=== PATIENT | female | born 1945 | race Caucasian/White ===

== ENCOUNTER 2018-12-28 13:44 | Emergency (ER) | payer MEDICARE, OTHER ==
[~2018-12-28] VITALS: Ht 152.4 cm; Wt 63.5 kg
[~2018-12-28 13:44] MED LIST: ASPI-306; ATEN50TA PO; GLIP-116; HYDR-1421; LISI40TA; METF100097 PO; SIMV-8 PO; [UNRECOGNIZED DRUG - CODE]; [UNRECOGNIZED DRUG - OTHER]
[2018-12-28] MEDS ORDERED: NITROGLYCERIN 0.4 MG SL TAB SL ONE (15:00)
[2018-12-28] MEDS ORDERED: ASPirin 81 mg TAB PO ONE (15:00)
[2018-12-28 15:51] LABS: Basophils # (auto) 0.1 uL; Basophils % (auto) 0.4 % (0.0-2.0); Eosinophils # (auto) 0.1 uL; Eosinophils % (auto) 0.7 % (0.0-7.0); Hematocrit 33.8 % (36.0-46.0); Hemoglobin 11.3 g/dL (12.2-16.2); Lymphocytes # (auto) 1.1 uL; Lymphocytes % (auto) 7.7 % (10.0-50.0); Mean Corpuscular Hemoglobin 30.5 pg (28.0-32.0); Mean Corpuscular Hgb Conc. 33.3 g/dL (32.0-36.0); Mean Corpuscular Volume 91.4 fL (80.0-100.0); Monocytes # (auto) 1.1 uL; Monocytes % (auto) 7.3 % (0.0-12.0); Neutrophils # (auto) 12.1 uL; Neutrophils % (auto) 83.9 % (37.0-80.0); Platelet Count (auto) 294 10^3/uL (140-450); Red Cell Distribution Width 14.7 % (11.8-14.3); White Blood Cell 14.5 10^3/uL (4.4-10.8)
[2018-12-28 16:02] LABS: Albumin 3.3 g/dL (3.4-5.0); BUN/Creatinine Ratio 37.8; Calcium 8.1 mg/dL (8.5-10.1); Potassium 3.9 mmol/L (3.5-5.1)
[2018-12-28 16:18] LABS: Bilirubin, Total 0.8 mg/dL (0.2-1.0); Total Protein 6.8 g/dL (6.4-8.2)
[2018-12-28] MEDS ORDERED: cefTRIAXone 1GM/50ML D5W 50 ML IV ONE (16:45)
[2018-12-28] MEDS ORDERED: ENOXAPARIN SOD 60 MG/0.6 ML SYRINGE SC ONE (16:45)
[2018-12-28] MEDS ORDERED: HYDROcodone-ACET 5/325MG TAB PO PRN (17:30)
[2018-12-28] MEDS ORDERED: ACETAMINOPHEN 500 MG TAB PO PRN (17:30)
[2018-12-28] MEDS ORDERED: MORPHINE SULF INJ 2 MG/ML SYRINGE 1ML IV PRN ×2 (17:30)
[2018-12-28] MEDS ORDERED: ONDANSETRON HCL 4 MG/2 ML VIAL IV PRN (17:30)
[2018-12-28] MEDS ORDERED: NITROGLYCERIN 0.4 MG SL TAB SL PRN (17:30)
[2018-12-28] MEDS ORDERED: hydrALAZINE HCL 20 MG/ML VL IV PRN (17:30)
[2018-12-28] MEDS ORDERED: NITROGLYCERIN 0.4MG/HR TOPICAL PATCH TD SCH (17:30)
[2018-12-28] MEDS ORDERED: TICA90TA PO (17:35)
[2018-12-28] MEDS ORDERED: CHOL20007 PO (17:35)
[2018-12-28] MEDS ORDERED: TRAZ-220 PO (17:35)
[2018-12-28] MEDS ORDERED: NITR1SPR TL (17:35)
[2018-12-28] MEDS ORDERED: DEXTROSE (50%) 50ML SYRG IV PRN (17:45)
[2018-12-28] MEDS ORDERED: LEVOFLOXACIN 750MG 150 ML IV SCH (18:00)
[2018-12-28 21:38] LABS: Urine Bacteria FEW /hpf (None Seen); Urine Blood Negative /uL (Negative); Urine Specific Gravity 1.017 (1.001-1.035); Urine WBC 1 /hpf (0 - 5)
[2018-12-28] MEDS ORDERED: InsuLIN REG 1unit/0.01ml Soln (100units/ml) SC SCH (22:00)
[2018-12-28] MEDS ORDERED: ACCU-CHEK COMFORT CURVE STRIP VI SCH (22:00)
[2018-12-28] MEDS ORDERED: ATORVASTATIN 20 MG TAB PO SCH (22:00)
[2018-12-28] MEDS ORDERED: traZODone HCL 50 MG TAB PO SCH (22:00)
[2018-12-28] MEDS ORDERED: TICAGRELOR 90 MG TAB PO SCH (22:00)
[2018-12-29 00:15] VITALS: BP 107/59
[2018-12-29] MEDS ORDERED: PANTOPRAZOLE 40 MG/10 ML VIAL IV SCH (10:00)
[2018-12-29] MEDS ORDERED: LISINOPRIL 10 MG TAB PO SCH (10:00)
[2018-12-29] MEDS ORDERED: ASPirin-EC 81 mg tab PO SCH (10:00)
[2018-12-29] MEDS ORDERED: ATENOLOL 25 MG TAB PO ONE (10:00)
== END 2018-12-29 00:27 | disposition home or self-care (01) ==
LOC: EDBD 13:44 → EDUNIT# 13:44 → ER 13:53 → TELE 17:33 → UNDOADMIN 17:33 → ER 12-29 00:27
DX: I24.9 Acute ischemic heart disease, unspecified (principal); I25.10 Atherosclerotic heart disease of native coronary artery without angina pectoris; E11.9 Type 2 diabetes mellitus without complications; E78.5 Hyperlipidemia, unspecified; I10 Essential (primary) hypertension; I25.2 Old myocardial infarction; Z79.82 Long term (current) use of aspirin; Z79.84 Long term (current) use of oral hypoglycemic drugs; Z79.899 Other long term (current) drug therapy
CPT/HCPCS: 36415; 71045; 80053; 81001; 82962; 83880; 84484; 85025; 86141; 87040; 93005; 96365; 96366; 96367; 96372; 99285; J0696; J1650; J1815; J1956; 96375

== ENCOUNTER 2019-09-15 11:51 | Emergency (ER) | payer MEDICARE, OTHER ==
[~2019-09-15] VITALS: Ht 152.4 cm; Wt 63.5 kg
[~2019-09-15 11:51] MED LIST changes: +CHOL20007 PO; -GLIP-116; -HYDR-1421; +NITR1SPR TL; +TICA90TA PO; +TRAZ-220 PO; -[UNRECOGNIZED DRUG - CODE]; -[UNRECOGNIZED DRUG - OTHER]
[2019-09-15 13:10] LABS: Basophils # (auto) 0.1 uL; Basophils % (auto) 0.8 % (0.0-2.0); Eosinophils # (auto) 0.2 uL; Eosinophils % (auto) 3.3 % (0.0-7.0); Hematocrit 39.4 % (36.0-46.0); Hemoglobin 13.2 g/dL (12.2-16.2); Lymphocytes # (auto) 1.1 uL; Mean Corpuscular Hemoglobin 30.4 pg (28.0-32.0); Mean Corpuscular Hgb Conc. 33.6 g/dL (32.0-36.0); Mean Corpuscular Volume 90.6 fL (80.0-100.0); Monocytes # (auto) 0.7 uL; Neutrophils # (auto) 5.3 uL; Neutrophils % (auto) 71.9 % (37.0-80.0); Nucleated Red Blood Cells % 0.1 %; Platelet Count (auto) 239 10^3/uL (140-450); Red Blood Cells 4.35 10^6/uL (4.0-5.20); Red Cell Distribution Width 15.5 % (11.8-14.3); White Blood Cell 7.3 10^3/uL (4.4-10.8)
[2019-09-15 13:24] LABS: Urine Bacteria NONE SEEN /hpf (None Seen); Urine Blood Negative /uL (Negative); Urine WBC 2 /hpf (0 - 5)
[2019-09-15 13:27] LABS: INR 1.02 (0.9-1.15); Partial Thromboplastin Time 29.9 sec (23.64-32.05)
[2019-09-15 13:30] LABS: Albumin 3.5 g/dL (3.4-5.0); Calcium 8.5 mg/dL (8.5-10.1); Potassium 4.3 mmol/L (3.5-5.1)
[2019-09-15 13:32] LABS: BUN/Creatinine Ratio 26.7
[2019-09-15 13:44] LABS: Bilirubin, Total 0.6 mg/dL (0.2-1.0); Total Protein 6.8 g/dL (6.4-8.2)
[2019-09-15] MEDS ORDERED: ASPirin 81 mg TAB PO ONE (17:45)
[2019-09-15 19:22] LABS: INR 1.03 (0.9-1.15); Partial Thromboplastin Time 29.7 sec (23.64-32.05)
[2019-09-15] MEDS ORDERED: ANGIOMAX 250 MG VIAL IV ONE (20:27)
[2019-09-15] MEDS ORDERED: ATROPINE SULF 1 MG/10ml SYR ONE (20:27)
[2019-09-15] MEDS ORDERED: SODIUM CHL 0.9% 0 ML ONE (20:28)
[2019-09-15] MEDS ORDERED: PHENYLEPHRINE HCL 10 MG/ML VL ONE (20:28)
[2019-09-15] MEDS ORDERED: DOPamine 1600MCG/ML D5W 0 ML IV ONE (20:28)
[2019-09-15] MEDS ORDERED: HEPARIN SODIUM (PORCINE) 5000 UNITS/ML 1ML VIAL ONE (20:28)
[2019-09-15] MEDS ORDERED: fentaNYL CITRATE 100 MCG/2 ML VL ONE (20:29)
[2019-09-15] MEDS ORDERED: MIDAZOLAM HCL 1MG/1ML-2 ML VIAL ONE (20:29)
[2019-09-16 09:40] VITALS: BP 132/85
== END 2019-09-16 10:06 | disposition short-term general hospital (02) ==
LOC: ER 11:51
DX: I21.4 Non-ST elevation (NSTEMI) myocardial infarction (principal); E11.9 Type 2 diabetes mellitus without complications; E78.5 Hyperlipidemia, unspecified; I10 Essential (primary) hypertension; I25.2 Old myocardial infarction; Z98.61 Coronary angioplasty status; Z79.82 Long term (current) use of aspirin; Z79.899 Other long term (current) drug therapy
CPT/HCPCS: 36415; 71046; 80053; 81001; 83880; 84443; 84484; 85025; 85610; 85730; 93005; J2250

== ENCOUNTER 2021-04-18 11:25 | Emergency (ER) | payer MEDICARE, OTHER ==
[~2021-04-18] VITALS: Ht 172.7 cm; Wt 59.0 kg
[~2021-04-18 11:25] MED LIST changes: -LISI40TA; +LISI40TA11
[2021-04-18 12:14] LABS: Basophils # (auto) 0 10 ^3/uL (0-0.2); Basophils % (auto) 0.1 % (0.0-2.0); Eosinophils # (auto) 0.2 10 ^3/uL (0-0.8); Eosinophils % (auto) 2.8 % (0.0-7.0); Hematocrit 35.5 % (36.0-46.0); Hemoglobin 12.3 g/dL (12.2-16.2); Lymphocytes # (auto) 1.4 10 ^3/uL (0.4-5.4); Lymphocytes % (auto) 17.2 % (10.0-50.0); Mean Corpuscular Hemoglobin 31.8 pg (28.0-32.0); Mean Corpuscular Hgb Conc. 34.6 g/dL (32.0-36.0); Mean Corpuscular Volume 91.9 fL (80.0-100.0); Monocytes # (auto) 0.6 10 ^3/uL (0-1.3); Monocytes % (auto) 7.4 % (0.0-12.0); Neutrophils # (auto) 5.7 10 ^3/uL (1.6-8.6); Neutrophils % (auto) 72.5 % (37.0-80.0); Red Blood Cells 3.86 10^6/uL (4.0-5.20); Red Cell Distribution Width 15.7 % (11.8-14.3); White Blood Cell 7.9 10^3/uL (4.4-10.8)
[2021-04-18 12:35] LABS: Albumin 3.7 g/dL (3.4-5.0); Calcium 8.7 mg/dL (8.5-10.1); Magnesium 2.4 mg/dL (1.6-2.6); Potassium 4.3 mmol/L (3.5-5.1)
[2021-04-18 12:41] LABS: Bilirubin, Total 0.6 mg/dL (0.2-1.0); Total Protein 7.4 g/dL (6.4-8.2)
[2021-04-18] MEDS ORDERED: SODIUM CHLORIDE 0.9% 1,000 ML IVB ONE (13:15)
[2021-04-18 16:14] VITALS: BP 151/65
== END 2021-04-18 17:06 | disposition still patient (30) ==
LOC: ER 11:25 → EDBD 11:25 → ER 17:06
DX: R06.02 Shortness of breath (principal); R10.9 Unspecified abdominal pain; I10 Essential (primary) hypertension; I25.2 Old myocardial infarction; E11.9 Type 2 diabetes mellitus without complications; E78.5 Hyperlipidemia, unspecified; I25.10 Atherosclerotic heart disease of native coronary artery without angina pectoris; Z87.891 Personal history of nicotine dependence; Z79.82 Long term (current) use of aspirin; Z79.84 Long term (current) use of oral hypoglycemic drugs; Z79.899 Other long term (current) drug therapy; Z20.822 Contact with and (suspected) exposure to COVID-19
CPT/HCPCS: 36415; 70450; 71045; 80053; 83735; 84484; 85025; 87426; 93005

== ENCOUNTER 2022-01-29 06:55 | Emergency (ER) | payer MEDICARE, OTHER ==
[~2022-01-29] VITALS: Ht 160 cm; Wt 63.5 kg
[2022-01-29 08:29] LABS: Basophils # (auto) 0.1 10 ^3/uL (0-0.2); Basophils % (auto) 0.7 % (0.0-2.0); Eosinophils # (auto) 0.1 10 ^3/uL (0-0.8); Eosinophils % (auto) 1.1 % (0.0-7.0); Hematocrit 40.4 % (36.0-46.0); Hemoglobin 13.5 g/dL (12.2-16.2); Lymphocytes # (auto) 0.8 10 ^3/uL (0.4-5.4); Lymphocytes % (auto) 8.7 % (10.0-50.0); Mean Corpuscular Hemoglobin 30.9 pg (28.0-32.0); Mean Corpuscular Hgb Conc. 33.5 g/dL (32.0-36.0); Mean Corpuscular Volume 92.1 fL (80.0-100.0); Monocytes # (auto) 0.5 10 ^3/uL (0-1.3); Monocytes % (auto) 5.4 % (0.0-12.0); Neutrophils # (auto) 7.5 10 ^3/uL (1.6-8.6); Neutrophils % (auto) 84.1 % (37.0-80.0); Red Blood Cells 4.39 10^6/uL (4.0-5.20); Red Cell Distribution Width 14.8 % (11.8-14.3); White Blood Cell 8.9 10^3/uL (4.4-10.8)
[2022-01-29 08:47] LABS: Calcium 9.3 mg/dL (8.5-10.1); Potassium 4.5 mmol/L (3.5-5.1)
[2022-01-29 08:51] LABS: Bilirubin, Total 0.8 mg/dL (0.2-1.0); Total Protein 7.7 g/dL (6.4-8.2)
[2022-01-29 08:58] LABS: INR 1.04 (0.9-1.15); Partial Thromboplastin Time 27.9 sec (23.6-33.0)
[2022-01-29 09:30] LABS: Urine Bacteria NONE SEEN /hpf (None Seen); Urine Blood Negative /uL (Negative); Urine Specific Gravity 1.029 (1.001-1.035); Urine WBC <1 /hpf (0 - 5)
[2022-01-29] MEDS ORDERED: HYDROcodone-ACET 5/325MG TAB PO ONE (09:30)
[2022-01-29] MEDS ORDERED: HYDROmorphone HCL 2 MG/ML VL/or syr IV ONE (12:45)
[2022-01-29] MEDS ORDERED: MORPHINE SULFATE 4 MG/ML SYR/VIAL IV ONE (16:15)
[2022-01-29 17:10] VITALS: BP 145/70
== END 2022-01-29 17:44 | disposition home or self-care (01) ==
LOC: ER 06:55 → EDBD 06:55 → ER 17:20
DX: S52.501A Unspecified fracture of the lower end of right radius, initial encounter for closed fracture (principal); M25.551 Pain in right hip; R79.89 Other specified abnormal findings of blood chemistry; I10 Essential (primary) hypertension; I25.10 Atherosclerotic heart disease of native coronary artery without angina pectoris; I25.2 Old myocardial infarction; E11.9 Type 2 diabetes mellitus without complications; E78.5 Hyperlipidemia, unspecified; Z87.891 Personal history of nicotine dependence; Z20.822 Contact with and (suspected) exposure to COVID-19; Z79.82 Long term (current) use of aspirin; Z79.899 Other long term (current) drug therapy; W18.39XA Other fall on same level, initial encounter; Y93.89 Activity, other specified; Y92.89 Other specified places as the place of occurrence of the external cause; Y99.8 Other external cause status
CPT/HCPCS: 36415; 72192; 73100; 80053; 81001; 82962; 84484; 85025; 85610; 85730; 87426; 93005; 96374; 99285; J1170; J7030

== ENCOUNTER 2022-01-30 07:06 | Inpatient (IN) | payer MEDICARE, OTHER ==
[~2022-01-30] VITALS: Ht 172.7 cm; Wt 57.0 kg
[2022-01-30] VITALS (11 sets, daily range): BP systolic 112–141; BP diastolic 64–86
[2022-01-30] MEDS ORDERED: ONDANSETRON HCL 4 MG/2 ML VIAL IV ONE (07:45)
[2022-01-30] MEDS ORDERED: SODIUM CHLORIDE 0.9% 1,000 ML IV ONE (07:45)
[2022-01-30 08:19] LABS: Basophils # (auto) 0.1 10 ^3/uL (0-0.2); Basophils % (auto) 0.4 % (0.0-2.0); Eosinophils # (auto) 0 10 ^3/uL (0-0.8); Hematocrit 38.3 % (36.0-46.0); Hemoglobin 12.9 g/dL (12.2-16.2); Lymphocytes # (auto) 0.6 10 ^3/uL (0.4-5.4); Lymphocytes % (auto) 3.7 % (10.0-50.0); Mean Corpuscular Hemoglobin 30.7 pg (28.0-32.0); Mean Corpuscular Hgb Conc. 33.8 g/dL (32.0-36.0); Mean Corpuscular Volume 90.9 fL (80.0-100.0); Monocytes # (auto) 1.2 10 ^3/uL (0-1.3); Monocytes % (auto) 8.1 % (0.0-12.0); Neutrophils # (auto) 13.6 10 ^3/uL (1.6-8.6); Neutrophils % (auto) 87.8 % (37.0-80.0); Red Blood Cells 4.21 10^6/uL (4.0-5.20); Red Cell Distribution Width 14.7 % (11.8-14.3); White Blood Cell 15.4 10^3/uL (4.4-10.8)
[2022-01-30] MEDS: MORPHINE SULFATE 4 MG/ML SYR/VIAL IV PRN ×2 (08:29→20:25)
[2022-01-30 08:39] LABS: Calcium 9.2 mg/dL (8.5-10.1); Magnesium 2.7 mg/dL (1.6-2.6); Potassium 4.1 mmol/L (3.5-5.1)
[2022-01-30 08:42] LABS: Bilirubin, Total 1.5 mg/dL (0.2-1.0); Total Protein 7.6 g/dL (6.4-8.2)
[2022-01-30 09:22] LABS: INR 1.03 (0.9-1.15); Partial Thromboplastin Time 28.1 sec (23.6-33.0)
[2022-01-30] MEDS ORDERED: NITROGLYCERIN 0.4 MG SL TAB SL ONE (10:00)
[2022-01-30] MEDS ORDERED: IOHEXOL 350 MG/ML 100ML IJ ONE (11:18)
[2022-01-30] MEDS ORDERED: MORPHINE SULFATE INJ 2 MG/ml SYRG IV PRN ×2 (11:45→14:45)
[2022-01-30] MEDS ORDERED: NITROGLYCERIN 0.4 MG SL TAB SL PRN ×2 (11:45→14:45)
[2022-01-30] MEDS ORDERED: ASPirin 81 mg TAB PO ONE (12:00)
[2022-01-30] MEDS ORDERED: LOSARTAN POTASSIUM 25 MG TAB PO ONE (12:00)
[2022-01-30] MEDS ORDERED: DEXTROSE (50%) 50ML SYRG IV PRN (12:00)
[2022-01-30] MEDS ORDERED: METOPROLOL SUCCINATE XL 50 MG TAB PO ONE (12:00)
[2022-01-30] MEDS: SODIUM CHLORIDE 0.9% 1,000 ML IV SCH (12:17)
[2022-01-30] MEDS ORDERED: OPTISON 3ml Vial for INJ IV ONE ×2 (13:47→14:15)
[2022-01-30 14:01] LABS: Cholesterol 116 mg/dL (< 200)
[2022-01-30 14:04] LABS: HDL Cholesterol 44 mg/dL (40-59); LDL Cholesterol 57 mg/dL (< 100); Triglycerides 160 mg/dL (< 150)
[2022-01-30 14:06] LABS: Magnesium 2.4 mg/dL (1.6-2.6); Phosphorus 4.1 mg/dL (2.5-4.90)
[2022-01-30] MEDS ORDERED: ANGIOMAX 250 MG VIAL IV ONE (14:28)
[2022-01-30] MEDS ORDERED: fentaNYL CITRATE 100 MCG/2 ML VL ONE (14:28)
[2022-01-30] MEDS ORDERED: MIDAZOLAM HCL 2MG/2ML 2ml VIAL (1mg/ml) ONE (14:28)
[2022-01-30] MEDS ORDERED: LIDOCAINE 2%HCL (LOCAL ANESTH.) INJ 10ml MDV ONE (14:29)
[2022-01-30] MEDS ORDERED: IODIXANOL 320MG/ML 100ML BTL IV ONE ×3 (14:29→15:51)
[2022-01-30] MEDS ORDERED: SODIUM CHL 0.9% 50 ML ONE (14:29)
[2022-01-30] MEDS ORDERED: diphenhdrAMINE HCL 50 MG/1 ML VL ONE (14:56)
[2022-01-30] MEDS: ACCU-CHEK COMFORT CURVE STRIP VI SCH ×2 (17:43→22:49)
[2022-01-30] MEDS: InsuLIN REG 1unit/0.01ml Soln (100units/ml) SC SCH ×2 (17:44→22:55)
[2022-01-30] MEDS: SODIUM CHLOR 0.9% PF (SALINE LOCK) 10ML VIAL/SYR IV SCH (22:48)
[2022-01-30] MEDS: SACUBITRIL-VALSARTAN 24mg/26mg TAB PO SCH (22:48)
[2022-01-30] MEDS: TICAGRELOR 90 MG TAB PO SCH (22:48)
[2022-01-30] MEDS: ATORVASTATIN 20 MG TAB PO SCH (22:48)
[2022-01-31] MEDS: MORPHINE SULFATE 4 MG/ML SYR/VIAL IV PRN ×2 (02:00→06:58)
[2022-01-31] MEDS: SODIUM CHLORIDE 0.9% 1,000 ML IV SCH (03:53)
[2022-01-31 04:48] VITALS: BP 106/51
[2022-01-31] MEDS: SODIUM CHLOR 0.9% PF (SALINE LOCK) 10ML VIAL/SYR IV SCH ×3 (05:34→22:08)
[2022-01-31] MEDS: ACCU-CHEK COMFORT CURVE STRIP VI SCH ×4 (06:47→22:10)
[2022-01-31] MEDS: InsuLIN REG 1unit/0.01ml Soln (100units/ml) SC SCH ×4 (06:48→22:10)
[2022-01-31 07:00] LABS: Basophils # (auto) 0.1 10 ^3/uL (0-0.2); Basophils % (auto) 0.3 % (0.0-2.0); Eosinophils # (auto) 0 10 ^3/uL (0-0.8); Hematocrit 37.4 % (36.0-46.0); Hemoglobin 12.9 g/dL (12.2-16.2); Lymphocytes # (auto) 0.9 10 ^3/uL (0.4-5.4); Mean Corpuscular Hemoglobin 31.4 pg (28.0-32.0); Mean Corpuscular Hgb Conc. 34.6 g/dL (32.0-36.0); Mean Corpuscular Volume 90.7 fL (80.0-100.0); Monocytes # (auto) 1.5 10 ^3/uL (0-1.3); Monocytes % (auto) 8.9 % (0.0-12.0); Neutrophils # (auto) 14.7 10 ^3/uL (1.6-8.6); Neutrophils % (auto) 85.8 % (37.0-80.0); Red Blood Cells 4.12 10^6/uL (4.0-5.20); Red Cell Distribution Width 14.9 % (11.8-14.3); White Blood Cell 17.1 10^3/uL (4.4-10.8)
[2022-01-31 07:14] LABS: INR 1.04 (0.9-1.15); Partial Thromboplastin Time 30.3 sec (23.6-33.0)
[2022-01-31 07:15] LABS: Magnesium 2.3 mg/dL (1.6-2.6); Potassium 3.9 mmol/L (3.5-5.1)
[2022-01-31 07:25] LABS: Thyroid Stimulating Hormone 0.51 uIU/mL (0.358-3.74)
[2022-01-31 07:44] LABS: Albumin 3.3 g/dL (3.4-5.0); BUN/Creatinine Ratio 27.7; Bilirubin, Total 1.5 mg/dL (0.2-1.0); CRP High Sensitivity 14.5 mg/dL (< 0.3); Calcium 8.6 mg/dL (8.5-10.1); Phosphorus 3.6 mg/dL (2.5-4.90); Total Protein 7.1 g/dL (6.4-8.2); Uric Acid 4.7 mg/dL (2.6-6.0)
[2022-01-31 08:00] VITALS: BP 117/69
[2022-01-31 09:00] VITALS: BP 117/69
[2022-01-31] MEDS: METOPROLOL SUCCINATE XL 50 MG TAB PO SCH ×2 (10:00→11:09)
[2022-01-31] MEDS ORDERED: LOSARTAN POTASSIUM 25 MG TAB PO SCH (10:00)
[2022-01-31] MEDS: ASPirin 81 mg TAB PO SCH ×2 (10:00→11:07)
[2022-01-31] MEDS ORDERED: FUROSEMIDE 20 MG/2 ML VIAL IV ONE (10:15)
[2022-01-31] MEDS: TICAGRELOR 90 MG TAB PO SCH ×2 (11:07→22:08)
[2022-01-31] MEDS: SACUBITRIL-VALSARTAN 24mg/26mg TAB PO SCH ×2 (11:08→22:09)
[2022-01-31] MEDS ORDERED: MORPHINE SULFATE INJ 2 MG/ml SYRG IV PRN (12:45)
[2022-01-31] MEDS: HYDROcodone-ACET 10/325MG TAB PO PRN (16:58)
[2022-01-31 17:16] VITALS: BP 119/69
[2022-01-31] MEDS: FUROSEMIDE 20 MG/2 ML VIAL IV SCH (18:00)
[2022-01-31 22:00] VITALS: BP 99/54
[2022-01-31] MEDS: ATORVASTATIN 20 MG TAB PO SCH (22:09)
[2022-02-01 05:00] VITALS: BP 97/63
[2022-02-01] MEDS: HYDROcodone-ACET 10/325MG TAB PO PRN ×3 (05:02→18:48)
[2022-02-01] MEDS: SODIUM CHLOR 0.9% PF (SALINE LOCK) 10ML VIAL/SYR IV SCH ×3 (05:03→22:16)
[2022-02-01] MEDS: FUROSEMIDE 20 MG/2 ML VIAL IV SCH ×2 (05:03→17:31)
[2022-02-01] MEDS: ACCU-CHEK COMFORT CURVE STRIP VI SCH ×4 (05:31→22:30)
[2022-02-01] MEDS: InsuLIN REG 1unit/0.01ml Soln (100units/ml) SC SCH ×4 (05:49→22:32)
[2022-02-01 07:44] LABS: Basophils # (auto) 0.1 10 ^3/uL (0-0.2); Basophils % (auto) 0.5 % (0.0-2.0); Eosinophils # (auto) 0 10 ^3/uL (0-0.8); Eosinophils % (auto) 0.2 % (0.0-7.0); Hematocrit 38.3 % (36.0-46.0); Lymphocytes # (auto) 0.9 10 ^3/uL (0.4-5.4); Lymphocytes % (auto) 6.7 % (10.0-50.0); Mean Corpuscular Hemoglobin 31.1 pg (28.0-32.0); Mean Corpuscular Hgb Conc. 34.1 g/dL (32.0-36.0); Mean Corpuscular Volume 91.4 fL (80.0-100.0); Monocytes # (auto) 0.9 10 ^3/uL (0-1.3); Monocytes % (auto) 7.4 % (0.0-12.0); Neutrophils # (auto) 10.9 10 ^3/uL (1.6-8.6); Neutrophils % (auto) 85.2 % (37.0-80.0); Red Blood Cells 4.19 10^6/uL (4.0-5.20); White Blood Cell 12.8 10^3/uL (4.4-10.8)
[2022-02-01 08:00] VITALS: BP 117/69
[2022-02-01 08:18] LABS: BUN/Creatinine Ratio 34.5; Calcium 8.5 mg/dL (8.5-10.1); Potassium 3.5 mmol/L (3.5-5.1)
[2022-02-01 09:00] VITALS: BP 105/63
[2022-02-01] MEDS: TICAGRELOR 90 MG TAB PO SCH ×2 (10:55→22:30)
[2022-02-01] MEDS: SACUBITRIL-VALSARTAN 24mg/26mg TAB PO SCH ×2 (10:55→22:00)
[2022-02-01 13:00] VITALS: BP 103/54
[2022-02-01 16:43] VITALS: BP 111/66
[2022-02-01 22:00] VITALS: BP 95/65
[2022-02-01] MEDS: ATORVASTATIN 20 MG TAB PO SCH (22:30)
[2022-02-02] MEDS: HYDROcodone-ACET 10/325MG TAB PO PRN ×4 (02:01→22:36)
[2022-02-02 05:00] VITALS: BP 96/59
[2022-02-02] MEDS: SODIUM CHLOR 0.9% PF (SALINE LOCK) 10ML VIAL/SYR IV SCH ×3 (05:41→21:37)
[2022-02-02] MEDS: FUROSEMIDE 20 MG/2 ML VIAL IV SCH ×2 (05:41→18:00)
[2022-02-02] MEDS: ACCU-CHEK COMFORT CURVE STRIP VI SCH ×4 (05:41→21:37)
[2022-02-02] MEDS: InsuLIN REG 1unit/0.01ml Soln (100units/ml) SC SCH ×4 (06:17→21:40)
[2022-02-02 08:00] VITALS: BP 117/69
[2022-02-02 09:31] VITALS: BP 106/61
[2022-02-02] MEDS: ASPirin 81 mg TAB PO SCH (10:02)
[2022-02-02] MEDS: TICAGRELOR 90 MG TAB PO SCH ×2 (10:03→21:35)
[2022-02-02] MEDS: SACUBITRIL-VALSARTAN 24mg/26mg TAB PO SCH ×2 (10:03→21:41)
[2022-02-02] MEDS: METOPROLOL SUCCINATE XL 50 MG TAB PO SCH (10:04)
[2022-02-02 13:17] VITALS: BP 99/62
[2022-02-02 16:45] VITALS: BP 117/62
[2022-02-02] MEDS: ATORVASTATIN 20 MG TAB PO SCH (21:35)
[2022-02-02 22:00] VITALS: BP 108/64
[2022-02-03 05:00] VITALS: BP 126/55
[2022-02-03] MEDS: FUROSEMIDE 20 MG/2 ML VIAL IV SCH (06:05)
[2022-02-03] MEDS: SODIUM CHLOR 0.9% PF (SALINE LOCK) 10ML VIAL/SYR IV SCH ×3 (06:05→22:57)
[2022-02-03] MEDS: ACCU-CHEK COMFORT CURVE STRIP VI SCH ×4 (06:10→23:02)
[2022-02-03] MEDS: InsuLIN REG 1unit/0.01ml Soln (100units/ml) SC SCH ×4 (06:18→23:55)
[2022-02-03 06:24] LABS: Basophils # (auto) 0.1 10 ^3/uL (0-0.2); Basophils % (auto) 0.9 % (0.0-2.0); Eosinophils # (auto) 0.2 10 ^3/uL (0-0.8); Eosinophils % (auto) 2.2 % (0.0-7.0); Hematocrit 37.8 % (36.0-46.0); Hemoglobin 12.7 g/dL (12.2-16.2); Lymphocytes # (auto) 0.7 10 ^3/uL (0.4-5.4); Lymphocytes % (auto) 7.7 % (10.0-50.0); Mean Corpuscular Hemoglobin 30.9 pg (28.0-32.0); Mean Corpuscular Hgb Conc. 33.6 g/dL (32.0-36.0); Mean Corpuscular Volume 92.2 fL (80.0-100.0); Monocytes # (auto) 0.5 10 ^3/uL (0-1.3); Monocytes % (auto) 5.7 % (0.0-12.0); Neutrophils # (auto) 7.1 10 ^3/uL (1.6-8.6); Neutrophils % (auto) 83.5 % (37.0-80.0); Red Blood Cells 4.11 10^6/uL (4.0-5.20); Red Cell Distribution Width 14.5 % (11.8-14.3); White Blood Cell 8.5 10^3/uL (4.4-10.8)
[2022-02-03 06:43] LABS: BUN/Creatinine Ratio 48.8; Calcium 8.7 mg/dL (8.5-10.1); Magnesium 2.7 mg/dL (1.6-2.6); Potassium 4.4 mmol/L (3.5-5.1)
[2022-02-03] MEDS: SACUBITRIL-VALSARTAN 24mg/26mg TAB PO SCH ×2 (10:00→22:59)
[2022-02-03] MEDS: METOPROLOL SUCCINATE XL 50 MG TAB PO SCH (10:00)
[2022-02-03] MEDS: ASPirin 81 mg TAB PO SCH (10:14)
[2022-02-03] MEDS: TICAGRELOR 90 MG TAB PO SCH ×2 (10:14→22:59)
[2022-02-03] MEDS: HYDROcodone-ACET 5/325MG TAB PO PRN ×2 (12:52→22:59)
[2022-02-03 13:00] VITALS: BP 100/61
[2022-02-03 17:00] VITALS: BP 104/58
[2022-02-03 21:53] VITALS: BP 135/70
[2022-02-03] MEDS: ATORVASTATIN 20 MG TAB PO SCH (22:58)
[2022-02-04 05:00] VITALS: BP 111/57
[2022-02-04] MEDS: ACCU-CHEK COMFORT CURVE STRIP VI SCH ×2 (06:06→12:07)
[2022-02-04] MEDS: SODIUM CHLOR 0.9% PF (SALINE LOCK) 10ML VIAL/SYR IV SCH ×2 (06:06→14:00)
[2022-02-04] MEDS: InsuLIN REG 1unit/0.01ml Soln (100units/ml) SC SCH ×2 (06:16→12:09)
[2022-02-04] MEDS: HYDROcodone-ACET 5/325MG TAB PO PRN ×2 (06:18→12:54)
[2022-02-04 08:00] VITALS: BP 110/61
[2022-02-04 09:42] VITALS: BP 110/61
[2022-02-04] MEDS ORDERED: FUROSEMIDE 20 MG TAB PO SCH (10:00)
[2022-02-04] MEDS: METOPROLOL SUCCINATE XL 50 MG TAB PO SCH (10:25)
[2022-02-04] MEDS: TICAGRELOR 90 MG TAB PO SCH (10:26)
[2022-02-04] MEDS: SACUBITRIL-VALSARTAN 24mg/26mg TAB PO SCH (10:26)
[2022-02-04] MEDS: ASPirin 81 mg TAB PO SCH (10:26)
[2022-02-04] MEDS ORDERED: SACU1TAB PO (11:45)
[2022-02-04 13:20] VITALS: BP 110/61
== END 2022-02-04 14:07 | disposition home or self-care (01) | DRG 246 ==
LOC: EDBD 07:06 → ER 07:06 → TELE 14:39 → TELE-EAST 17:27
PROVIDERS: ADMIT Hospitalist; ATTEND Internal Medicine
PROC: 027034Z Dilation of Coronary Artery, One Artery with Drug-eluting Intraluminal Device, Percutaneous Approach (ICD-10-PCS; principal; 2022-01-30)
PROC: 4A023N7 Measurement of Cardiac Sampling and Pressure, Left Heart, Percutaneous Approach (ICD-10-PCS; 2022-01-30)
PROC: B211YZZ Fluoroscopy of Multiple Coronary Arteries using Other Contrast (ICD-10-PCS; 2022-01-30)
PROC: B215YZZ Fluoroscopy of Left Heart using Other Contrast (ICD-10-PCS; 2022-01-30)
PROC: B240ZZ3 Ultrasonography of Single Coronary Artery, Intravascular (ICD-10-PCS; 2022-01-30)
DX: T82.855A Stenosis of coronary artery stent, initial encounter (principal); I21.4 Non-ST elevation (NSTEMI) myocardial infarction; I50.23 Acute on chronic systolic (congestive) heart failure; S52.501A Unspecified fracture of the lower end of right radius, initial encounter for closed fracture; F11.20 Opioid dependence, uncomplicated; I25.110 Atherosclerotic heart disease of native coronary artery with unstable angina pectoris; F32.9 Major depressive disorder, single episode, unspecified; G89.4 Chronic pain syndrome; I25.5 Ischemic cardiomyopathy; I11.0 Hypertensive heart disease with heart failure; E11.9 Type 2 diabetes mellitus without complications; R79.89 Other specified abnormal findings of blood chemistry; G47.9 Sleep disorder, unspecified; Z20.822 Contact with and (suspected) exposure to COVID-19; W18.39XA Other fall on same level, initial encounter; Y84.0 Cardiac catheterization as the cause of abnormal reaction of the patient, or of later complication, without mention of misadventure at the time of the procedure; E78.5 Hyperlipidemia, unspecified; I25.2 Old myocardial infarction; Z79.02 Long term (current) use of antithrombotics/antiplatelets; Z79.82 Long term (current) use of aspirin; Z80.1 Family history of malignant neoplasm of trachea, bronchus and lung; Z79.84 Long term (current) use of oral hypoglycemic drugs; Z87.891 Personal history of nicotine dependence; Z90.49 Acquired absence of other specified parts of digestive tract; Z98.61 Coronary angioplasty status; Y93.89 Activity, other specified; Y92.89 Other specified places as the place of occurrence of the external cause; Y99.8 Other external cause status
CPT/HCPCS: 36415; 70450; 71045; 71275; 73090; 73120; 80048; 80053; 80061; 82550; 82728; 82962; 83036; 83615; 83690; 83735; 83880; 84100; 84443; 84484; 84550; 85025; 85379; 85610; 85652; 85730; 86141; 87040; 87081; 92928; 92978; 93005; 93306; 93458; 93886; 96361; 96374; 97163; 99152; 99153; 99291; C1874; G0378; J1815; J2001; J2250; J2405; Q9956; Q9967